=== PATIENT | female | born 1980 | race Caucasian/White ===

== ENCOUNTER 2020-08-17 15:45 | Emergency (ER) | payer OTHER ==
[2020-08-17 17:02] LABS: BASOPHIL 1.3 % (0-2); EOSINOPHIL 3.9 % (0-5); HCT 38.1 % (37.0-47.0); HGB 13.5 g/dl (12.5-16.0); LYMPHOCYTE 39.4 % (15-48); MCH 29.9 pg (25.0-31.0); MCHC 35.4 g/dL (32.0-36.0); MCV 84.3 fL (78.0-100.0); MONOCYTE 10.3 % (0-12); MPV 10.3 fL (6.0-9.5); NEUTROPHIL 44.7 % (41-80); NRBC 0; PLT 344 K/uL (150-400); RBC 4.52 M/uL (4.20-5.40); RDW 12.5 % (11.5-14.0)
[2020-08-17 17:14] LABS: BILIRUBIN - TOTAL 0.3 mg/dL (0.2-1.0); BUN/CREAT RATIO (CALC) 23.1 RATIO; CREATININE 0.65 mg/dL (0.51-0.95); GLOBULIN (CALCULATION) 3.8 g/dL; POTASSIUM 3.4 mmol/L (3.5-5.1); TOTAL PROTEIN 7.8 g/dL (6.4-8.2)
== END 2020-08-17 17:33 | disposition home or self-care (01) ==
LOC: FER 15:45
PROVIDERS: Emergency Medicine
DX: I10 Essential (primary) hypertension (principal); G43.909 Migraine, unspecified, not intractable, without status migrainosus; Z79.899 Other long term (current) drug therapy
CPT/HCPCS: 36415; 80053; 85025; 99283; J1885; J2765

== ENCOUNTER 2020-09-03 15:13 | Emergency (ER) | payer SELFPAY ==
[2020-09-03] MEDS ORDERED: TRAMADOL HCL50 MG PO (16:43)
== END 2020-09-03 17:00 | disposition home or self-care (01) ==
LOC: FER 15:13
DX: S93.602A Unspecified sprain of left foot, initial encounter (principal); I10 Essential (primary) hypertension; Z79.84 Long term (current) use of oral hypoglycemic drugs; Z79.899 Other long term (current) drug therapy; Z79.1 Long term (current) use of non-steroidal anti-inflammatories (NSAID); Z85.3 Personal history of malignant neoplasm of breast; X58.XXXA Exposure to other specified factors, initial encounter
CPT/HCPCS: 93971